=== PATIENT | female | born 1935 | race Caucasian/White ===

== ENCOUNTER 2016-11-23 10:35 | Outpatient (CLI) | payer OTHER ==
[~2016-11-23 10:35] MED LIST: ADVAIR DISKU1 INH; ADVIL200 M1 PO; ALDACTONE25 MG PO; ASPIRIN EC81 MG; COQ-1010 MG; DOCUSATE SODIU100 MG PO; FISH OIL; LEVOTHYROXINE75 MCG PO; MECLIZINE HCL25 M1 PO; MULTIPLE VITAMIN PO
--- NOTE | 2016-11-23 11:49 | DIAGNOSTIC IMAGING REPORT ---
PROCEDURE: MG BILATERAL SCREENING W/CAD INDICATION: Screening. 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 TECHNIQUE: Bilateral CC and MLO digital views. COMPARISON: Compared to 11/01/2015, 05/24/2015, 11/10/2014, and 10/28/2014. Comparison is also made to right breast ultrasound studies (06/03/2015, 11/10/2014. FINDINGS: Computer-aided detection applied. Mildly dense with a few dystrophic calcifications. No significant change in intramammary lymph nodes in the upper outer right breast. IMPRESSION: 1. Negative mammogram. RESULT CODE: 2- Benign finding(s). A. A negative report should not delay biopsy if a dominant or clinically suspicious mass is present. 10-15% of cancers are not identified by x-ray. B. A negative report may reinforce clinical impression. C. Adenosis and dense breasts may obscure an underlying neoplasm. D. False positive reports average 6-10%. E.. A yearly screening mammogram is recommended. A reminder letter will be scheduled.
== END 2016-11-23 23:00 ==
LOC: MAM SRH 10:35
DX: Z12.13 Encounter for screening for malignant neoplasm of small intestine (principal)